=== PATIENT | female | born 1990 | race African-American/Black ===

== ENCOUNTER 2017-06-04 21:02 | Emergency (ER) | payer OTHER ==
[~2017-06-04] VITALS: Ht 170.2 cm; Wt 77.1 kg
--- NOTE | ~2017-06-04 | EKG ---
[address] [address] [place] [address] ELECTROCARDIOGRAM REPORT Name: SUAD BUNN Room #: DEP [facility] [id number] Admission: 06/04/17 Attend Phys: Discharge: 06/05/17 Date of : 86 Report #: [id number] THIS REPORT FOR: //name// [facility] ED Test Date: 2017-06-04 Test Time: 22:21:11 Pat Name: SUAD BUNN Department: Room: Gender: F Arts Manager: [email or web address] : 1990 Requested By: Jennifer Spencer Order Number: [id number] MD: Ceiclio Valencia Measurements Intervals [place] Rate: 85 P: 70 WI: 167 QRS: 26 QRSD: 80 T: 3 QT: 343 QTc: 408 Interpretive Statements Sinus rhythm Nonspecific T wave abnormality Baseline wander in lead(s) V2 No previous ECG available for comparison Electronically Signed On 06-05-2017 14:38:43 GI PHYSICIAN by Cecilio Valencia [email or web address] <ELECTRONICALLY SIGNED> By: Cecilio Valencia MD, [facility] 06/05/17 1438 2221 2221 Cecilio Valencia MD, FACC /EPI
[~2017-06-04 21:02] MED LIST: CIPROFLOXACIN500 M1 PO; IBUPROFEN 600600 M1 PO; NORCO 5-325 TA1 EACH PO
[2017-06-04] MEDS ORDERED: GLUMETZA500 PO (21:11)
[2017-06-04 23:18] LABS: ABSOLUTE NEUTROPHILS 3.2 thou/uL (1.4-8.2); BASOPHILS 0.8 % (0.0-2.0); EOSINOPHILS 1.8 % (0.0-3.0); HEMATOCRIT 42.2 % (37.0-47.0); HEMOGLOBIN 14.1 gm/dL (12.0-15.0); LYMPHOCYTES 32.5 % (24.0-44.0); MCH 27.7 pg (26.0-34.0); MCHC 33.5 g/dL (28.0-37.0); MCV 82.8 fL (80.0-100.0); MONOCYTES 9.1 % (1.0-8.0); PLATELET COUNT 273 thou/uL (150-400); POLYS 55.8 % (36.0-66.0); RBC 5.09 mil/uL (4.20-5.00); RDW 12.8 % (10.5-14.5); WBC 5.7 thou/uL (4.0-11.0)
[2017-06-04 23:39] LABS: CALCIUM 9.3 mg/dL (8.5-10.1); CREATININE 0.9 mg/dL (0.6-1.0)
== END 2017-06-05 00:24 | disposition home or self-care (01) ==
LOC: ER 21:02
PROVIDERS: Nurse Practitioner Family
DX: R03.0 Elevated blood-pressure reading, without diagnosis of hypertension (principal); R51 Headache